=== PATIENT | female | born 1985 | race African-American/Black ===

== ENCOUNTER 2024-10-17 19:49 | Emergency (ER) | payer MEDICARE, SELFPAY ==
[2024-10-17 19:54] VITALS: BP 111/73
[2024-10-17 20:22] LABS: % Basophils 0.8 % (0-2); % Eosinophils 1.2 % (0-6); % Immature Granulocytes 0.2 % (0-0.5); % Lymphocytes 42.6 % (20.5-51.1); % Monocytes 7.3 % (1.7-9.3); % Neutrophils 47.9 % (42.2-75.2); Absolute Basophils 0.1 10^3/uL (0-0.2); Absolute Eosinophils 0.1 10^3/uL (0-0.7); Absolute Lymphocytes 2.6 10^3/uL (1.2-3.4); Absolute Monocytes 0.4 10^3/uL (0.1-0.6); Absolute Neutrophils 2.9 10^3/uL (1.4-6.5); Hematocrit 36.6 % (37.0-47.0); Hemoglobin 12.6 g/dL (12.0-16.0); Mean Corp Hgb Conc. 34.4 g/dL (33.0-37.0); Mean Corpuscular Hgb 30.9 pg (27.0-31.0); Mean Corpuscular Volume 89.7 fL (81.0-99.0); Mean Platelet Volume 10.6 fL (7.4-10.4); Nucleated Red Blood Cells % 0 %; Platelet Count 225 10^3/uL (130-400); Red Blood Cell Count 4.08 10^6/uL (4.20-5.40); Red Cell Dist. Width 13.2 % (11.5-14.5); White Blood Cell Count 6.1 10^3/uL (4.8-10.8)
[2024-10-17 20:33] LABS: HCG, Serum Qualitative Screen Negative
[2024-10-17 20:36] LABS: ALT (SGPT) 12 U/L (0-35); AST (SGOT) 19 U/L (14-36); Albumin 4.1 g/dl (3.5-5.0); Alkaline Phosphatase 52 U/L (38-126); Blood Urea Nitrogen 17 mg/dl (7-17); Calcium 8.9 mg/dl (8.4-10.2); Carbon Dioxide 27 mmol/L (22-30); Chloride 107 mmol/L (98-107); Glucose 100 mg/dl (70-99); Potassium 4.4 mmol/L (3.5-5.1); Sodium 139 mmol/L (135-145); Total Bilirubin 0.4 mg/dl (0.2-1.3); Total Protein 7.2 g/dl (6.3-8.2); eGFR > 60.00
[2024-10-17 20:46] LABS: Troponin I 0.015 ng/ml
--- NOTE | 2024-10-17 21:07 | ED.GENMED ---
History of Present Illness
General
Chief Complaint: Fainting/Passed Out
Source: patient
Time Seen by Provider: 10/17/24 20:50
History of Present Illness
History of Present Illness:
39-year-old female otherwise quite healthy presents with symptoms of persistent nausea dizziness and passing out episodes. 6 days ago, she was in [place] with her son as he recently turned 21. She states she was not drinking. 1 evening she had
a syncopal episode and fell hitting her head. This happened twice in a row she tried to stand back up she fell again. Since then she has had the above-mentioned numbness and had another episode later in the week that resulted in lightheadedness.
There is no preceding chest pain. She denies any vision changes. She notes no chest pain. No fevers. In general he just feels off. No leg swelling. No other complaints at this time
Past History
Past History
ED Past Medical History: None
ED Past Surgical History: Tonsilectomy
Social History
Tobacco: Non-smoker
Living: with family
Employment: Employed
Phy Exam
Physical Exam
Physical Exam:
General: Well-appearing female no acute respiratory distress
HEENT normocephalic pupils equal round reactive to light no nystagmus
Heart: Regular rate and rhythm
Lungs: Clear no wheeze abdomen is soft nontender nondistended
Neurologic exam: Alert and oriented x 3 Vignesh-Hallpike negative no nystagmus conversing appropriately
Musculoskeletal exam: No midline tenderness over the cervical spine
Course
Orders/Labs/Results
Orders:
Orders
10/17/24 20:00
Electrocardiogram (*1) Urgent
Reason for Study: Other
Other Reason for Exam: Respiratory Distress
EKG- Treatment ONCE
CR Chest - 2 Views Urgent
Comment:
Reason For Exam: respiratory distress
O2 Therapy [RESP] Urgent
Titrate/Wean O2 to maintain O2 sat greater than (%): 93
Special Instructions: TO MAINTAIN CONTINUOUS O2 SATS >/= 93%
Pulse Ox/cont/shift [RESP] Urgent
Quantity: 1
Special Instructions: continuous pulse ox
10/17/24 20:06
Test Result ONCE
10/17/24 20:12
Complete Blood Count/With Diff Urgent
Comprehensive Metabolic Panel Urgent
HCG, Serum Qualitative Screen Urgent
Lyme Progressive Urgent
Comment: ADD ON
Troponin I Urgent
10/17/24 21:03
CT Head W/o Iv Contrast Urgent
Comment:
Reason For Exam: syncope, headache
0.9% Sodium Chloride 1000 ml [Nss] 1,000 ml IV BOLUS
10/17/24 21:13
Ondansetron Injectable [Zofran] 4 mg IV NOW STA
10/17/24 21:18
Orthostatic VS- Treatment ONCE
10/17/24 22:13
D-Dimer Urgent
10/17/24 23:00
CT Chest PE Study Urgent
Comment:
Reason For Exam: syncope, elevated d-dimer
10/17/24 23:10
Add On- LAB Urgent
Tests Added?: lyme progressive
Diphenhydramine [Benadryl] 25 mg IV NOW STA
Prochlorperazine [Compazine] 10 mg IV NOW STA
Abnormal Lab Results
10/17/24 10/17/24
20:12 22:13
RBC 4.08 L 10^6/uL
(4.20-5.40)
Hct 36.6 L %
(37.0-47.0)
MPV 10.6 H fL
(7.4-10.4)
D-Dimer 0.53 H ug/mlFEU
(0.00-0.50)
Glucose 100 H mg/dl
(70-99)
10/17/24 20:12
06/28/25 20:12
Vital Signs
Initial and Last Documented VS:
Initial Vital Signs
Temp Pulse Resp BP Pulse Ox
98.5 F 107 20 111/73 100
10/17/24 19:54 10/17/24 19:54 10/17/24 19:54 10/17/24 19:54 10/17/24 19:54
Last Documented Vital Signs
Temp Pulse Resp BP Pulse Ox
98.5 F 80 14 114/74 100
10/17/24 19:54 10/18/24 00:00 10/18/24 00:00 10/18/24 00:00 10/18/24 00:00
MDM/Problems Addressed
Differential Diagnosis Includes:
Patient with generalized weakness dizziness nausea fatigue and syncope. Question arrhythmia versus dehydration versus volume depletion versus vertigo or migraine or concussion labs reviewed through triage without any significant finding including
negative troponin. EKG shows sinus rhythm without ischemic changes.
Will add CT of the head given the multiple falls and persistent dizziness order fluids and Zofran
*Pulse Oximetry
SaO2: 100
Oxygen Mode of Delivery: Room air
Patient hypoxic: no
*Critical Care Note
Total Time (30-74mins, 75-104mins- exclusive of procedures): Not Applicable
Update Note
Update Note:
Workup here shows normal level troponin. CT of the head was negative for acute traumatic injury. Given the recent flight and syncope, concern for possible PE. D-dimer was ordered which was slightly elevated. This prompted a CTA of the chest.
This was negative for acute finding. Patient had residual headache and nausea with dizziness after falling and hitting her head. Question possible postconcussive syndrome versus migraine. She was given fluids Compazine Benadryl and is actually
feeling better. Offered admission for syncope patient wishes to go home and rest. She will follow-up with her family doctor. Stable for discharge
ED Attending Note
-
Portions of this chart may have been created with voice recognition software.� Occasional wrong word or��sound alike� substitutions may have occurred due to the inherent limitations of voice recognition software.
Discharge Plan
Departure
Patient Disposition: Home (Routine Discharge)
Date of Disposition: 10/18/24
Time of Disposition: 01:24
Patient with high blood pressure during this ER visit?: No
Discharge Problem:
Headache
Instructions: Head injury in adults, Dizziness, Nonvertigo, (DC)
Prescriptions:
No Action
No Current Medications
0
Referrals:
Nydia Shah CRNP [Family Provider]
Stand Alone Forms: Return to Work
Activity Restrictions/Additional Instructions:
Rest. Avoid excessive physical or cognitive activity. Stay hydrated. Return if worse otherwise follow-up with your doctor
Interventions
Interventions:
*Risk Screen - Suicide Last Done: 10/17/24 19:54
*General Assessment Last Done: 10/17/24 19:54
*Neglect/Abuse Screening Last Done: 10/17/24 19:54
*ED- Fall Risk Assessment Last Done: 10/17/24 19:54
*ED COVID-19 Vaccine History Last Done: 10/17/24 19:54
ED- Cardiac Assessment Last Done: 10/17/24 21:35
ED- Neurological Assessment Last Done: 10/17/24 21:35
Discharge Date and Time
Print Language: SYRIAC
[2024-10-17 21:11] VITALS: BMI 35.2
[2024-10-17 21:14] VITALS: BP 117/82
--- NOTE | 2024-10-17 21:15 | EDRN ---
While in [place] Saturday night, pt passed out twice on [facility]. Pt's son told he she did not hit her head however pt noted a lump on her head. Pt returned to the [facility] and passed out in the bathroom hitting her head on the floor. Pt tired, has head
pain, nausea and dizziness since coming home morning. No vomiting. Pt has photophobia. Pt did not seek medical treatment while in [facility].
[2024-10-17] MEDS: NSS 1000 IV (21:24)
[2024-10-17] MEDS: ZOFRAN 4 MG IV (21:28)
[2024-10-17 21:41] VITALS: BP 110/72; BP 115/88; BP 116/89; PULSE 71; PULSE 72; PULSE 74
[2024-10-17 22:00] VITALS: BP 106/66
[2024-10-17 22:48] LABS: D-Dimer 0.53 ug/mlFEU (0.00-0.50)
[2024-10-17 23:00] VITALS: BP 125/91
[2024-10-17] MEDS: BENADRYL 25 MG IV (23:43)
[2024-10-17] MEDS: COMPAZINE 10 MG IV (23:44)
[2024-10-18] VITALS: BP 114/74
[2024-10-18 01:37] VITALS: BP 101/76
[2024-10-19 14:02] LABS: Lyme Antibody Screen, EIA Negative (Negative)
== END 2024-10-18 01:45 | disposition home or self-care (01) ==
LOC: EMR 19:49
PROVIDERS: Emergency Medicine; EMERGENCY PHYSICIAN Emergency Medicine; FAMILY PHYSICIAN Nurse Practitioner Family
DX: R55 Syncope and collapse (principal); S09.90XA Unspecified injury of head, initial encounter; R51.9 Headache, unspecified; R11.0 Nausea; R20.0 Anesthesia of skin; R29.6 Repeated falls; Z88.6 Allergy status to analgesic agent; Z88.1 Allergy status to other antibiotic agents
CPT/HCPCS: 99285; 96361; 96374; 96375 ×2; 70450; 71046; 71275; 80053; 84484; 84703; 85025; 85379; 86618; 93005; Q9967

== ENCOUNTER → 2025-02-16 08:09 | Outpatient (REF) | payer MEDICARE, SELFPAY | LOC: HWRCS 08:09 | PROVIDERS: ATTENDING PHYSICIAN Internal Medicine; FAMILY PHYSICIAN Nurse Practitioner Family | DX: R55 Syncope and collapse (principal) | CPT/HCPCS: 93306 ==

== ENCOUNTER → 2025-02-19 10:13 | Outpatient (REF) | payer MEDICARE, SELFPAY | LOC: RCS 10:13 | PROVIDERS: ATTENDING PHYSICIAN Internal Medicine; FAMILY PHYSICIAN Nurse Practitioner Family | DX: R55 Syncope and collapse (principal) | CPT/HCPCS: 93017 ==